=== PATIENT | male | born 1975 | race Caucasian/White ===

== ENCOUNTER → 2016-06-02 | Outpatient (CLI) | payer BC ==
[~2016-06-02] MED LIST: AGM875 PO; BUDESUS NAE; GUAI100L2 PO; IBUP-1450 PO
--- NOTE | 2016-06-02 15:53 | DIAGNOSTIC IMAGING REPORT ---
RIGHT UPPER EXTREMITY VENOUS DOPPLER CLINICAL HISTORY: Right arm swelling. COMPARISON STUDY: Right upper extremity venous Doppler January 04, 2008. TECHNIQUE: Sonography of the venous system the right upper kidney was performed. FINDINGS: The right internal jugular, subclavian, axillary, brachial, basilic, radial and ulnar veins are patent. IMPRESSION: No deep venous thrombus identified within the right upper extremity. Electronically signed by: Redd Donis M.D. 06/02/2016 3:52 PM Dictated Date/Time: 06/02/2016 3:51 PM
== END | disposition home or self-care (01) ==
LOC: C.ULTR 15:10
PROVIDERS: ATTEND Family Medicine
DX: M25.431 Effusion, right wrist (principal)

== ENCOUNTER 2017-01-13 06:54 | Emergency (ER) | payer BC ==
[~2017-01-13] VITALS: Ht 175.3 cm; Wt 82.7 kg
[2017-01-13 06:57] VITALS: TEMP 36.6; Ht 175.3 cm; Wt 82.7 kg
[2017-01-13] MEDS ORDERED: SODIUM CHLORIDE 0.9% 1000ML 1,000 ML IV STA (07:20)
[2017-01-13] MEDS ORDERED: ONDANSETRON INJ 2 MG/ML 2 ML VIAL IV STA (07:20)
[2017-01-13 07:32] LABS: BASO % 0.2 %; BASO ABS # 0.01 K/uL (0-0.2); COMPLETE YES; EOS % 2.3 %; HEMATOCRIT 45.5 % (42-52); IG% 0.5 %; LYMPH % 36.9 %; LYMPH ABS # 2.24 K/uL (1.2-3.4); MEAN CELL VOLUME 86.5 fL (80-100); MEAN CORPUSCULAR HEMOGLOBIN 31.2 pg (25-34); MEAN PLATELET VOLUME 10.4 fL (7.4-10.4); MONO % 8.7 %; NEUT % 51.4 %; PLATELET COUNT 246 K/uL (130-400); RED BLOOD COUNT 5.26 M/uL (4.7-6.1); WHITE BLOOD COUNT 6.07 K/uL (4.8-10.8)
[2017-01-13 07:52] LABS: BUN/CREATININE RATIO 9.5 (10-20); CALCIUM 9.2 mg/dl (8.5-10.1); CREATININE 1.1 mg/dl (0.60-1.40); POTASSIUM 3.6 mmol/L (3.5-5.1)
--- NOTE | 2017-01-13 07:54 | DIAGNOSTIC IMAGING REPORT ---
CT SCAN OF THE ABDOMEN AND PELVIS WITHOUT IV CONTRAST CLINICAL HISTORY: Left lower quadrant abdominal pain. COMPARISON STUDY: Abdominal CT dated 01/09/2010. TECHNIQUE: CT scan of the abdomen and pelvis is performed from the lung bases to the proximal femora. Images are reviewed in the axial, sagittal, and coronal planes. IV contrast was not administered for this examination as per the referring clinician. Note that the examination was performed in suboptimal fashion without oral and IV contrast. A dose lowering technique was utilized adhering to the principles of ALARA. CT DOSE: 659.58 mGy.cm FINDINGS: Lung bases: The heart is enlarged and without pericardial effusion. The lung bases are clear. There is a small hiatal hernia. Liver: The unenhanced liver is mildly enlarged measuring 18.5 cm in length. The liver demonstrates diffusely diminished attenuation consistent with severe hepatic steatosis. Fatty sparing is seen adjacent to gallbladder fossa. There is no intrahepatic biliary ductal dilatation. Gallbladder: Unremarkable. Spleen: Normal in size and attenuation. Pancreas: The unenhanced pancreas is normal as visualized. Adrenal glands: Unremarkable. Kidneys: The unenhanced kidneys are normal in size and without hydronephrosis. There are no renal calculi identified. There is no evidence of contour deforming renal mass lesion. Abdominal vasculature: The abdominal aorta is normal in course and caliber. Bowel: The small bowel and colon are normal in course and caliber. The appendix is well-visualized and normal. Peritoneum: There is no intraperitoneal free air or abdominal ascites. There is a small fat-containing umbilical hernia. Lymphadenopathy: None. Pelvic viscera: The bladder, prostate, and seminal vesicles are normal as visualized. Skeletal structures: No lytic or blastic lesions are seen. IMPRESSION: 1. There are no acute infectious or inflammatory findings in the abdomen or pelvis. 2. Hepatomegaly and severe back steatosis. 3. Cardiomegaly. 4. Additional findings as above. Electronically signed by: Erik Castañeda M.D. 01/13/2017 7:53 AM Dictated Date/Time: 01/13/2017 7:46 AM
--- NOTE | 2017-01-13 07:54 | DIAGNOSTIC IMAGING REPORT ---
CHEST ONE VIEW PORTABLE HISTORY: Right-sided abdominal pain. COMPARISON: Chest 07/18/2015. FINDINGS: The lungs are clear. Cardiac silhouette is normal in size. No pleural effusions. No pneumothorax. IMPRESSION: No acute process. Electronically signed by: Patricio Parks M.D. 01/13/2017 7:53 AM Dictated Date/Time: 01/13/2017 7:51 AM
[2017-01-13] MEDS ORDERED: KETOROLAC TROMETHAMINE 30 MG/ML VIAL IV STA (08:06)
--- NOTE | 2017-01-13 08:13 | EMERGENCY ROOM VISIT NOTE ---
History Report prepared by Gómez: Stefani Barajas Under the Supervision of: Shana ValenciaO. First contact with patient: 07:04 Chief Complaint: ABDOMINAL PAIN Stated Complaint: SEVERE PAIN IN RT SIDE ABD, PAIN IN BACK, History of Present Illness The patient is a 41 year old male who presents to the Emergency Room with complaints of persistent left lower quadrant abdominal pain that began two days ago. He currently rates his discomfort as a 7/10 in severity. The patient states that when his pain began on Wednesday he had difficulty shopping with his due to his pain. He states that he has been feeling nauseous since then and states that he has attempted to follow a BRAT diet. The patient states that he notices the pain into his back. He states that his pain is worsened with eating and standing in place. The patient states that he had diarrhea on Wednesday. He states that his last normal bowel movement was on Wednesday. The patient denies any history of a cholecystectomy or appendectomy. He does report a history of IBS. The patient denies any fever or vomiting. 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 Source of History: patient Onset: two days ago Position: abdomen (LLQ) Symptom Intensity: 7/10 Timing: other (persistent) Modifying Factors (Worsening): eating, other (standing up) Associated Symptoms: + nausea, + diarrhea, No fevers, No vomiting Review of Systems See HPI for pertinent positives & negatives. A total of 10 systems reviewed and were otherwise negative. Past Medical & Surgical Medical Problems: (1) Venous malformation Family History FH: heart disease Social History Smoking Status: Never Smoker Marital Status: Occupation Status: employed Current/Historical Medications No Active Prescriptions or Reported Meds Allergies Coded Allergies: Naproxen (Verified Allergy, Mild, 01/13/17) Physical Exam Vital Signs Date Time Temp Pulse Resp B/P (MAP) Pulse Ox O2 Delivery O2 Flow Rate FiO2 01/13/17 08:35 55 16 98 01/13/17 08:30 114/74 01/13/17 08:20 53 98 01/13/17 08:05 59 18 98 01/13/17 08:00 118/79 01/13/17 07:54 57 18 99 01/13/17 07:33 114/76 01/13/17 07:24 63 12 97 Room Air 01/13/17 07:16 69 01/13/17 07:11 126/86 01/13/17 06:57 36.6 63 18 125/85 97 Room Air Physical Exam CONSTITUTIONAL/VITAL SIGNS: Reviewed / noted above. GENERAL: Non-toxic in appearance. INTEGUMENTARY: Warm, dry, and [place]. HEAD: Normocephalic. EYES: without scleral icterus or trauma. ENT/OROPHARYNX: clear and moist. LYMPHADENOPATHY/NECK: Is supple without lymphadenopathy or meningismus. RESPIRATORY: Lungs clear and equal. CARDIOVASCULAR: Regular rate and rhythm. GI/ABDOMEN: Soft and mild tenderness in the left lower quadrant. No organomegaly or pulsatile mass. No rebound or guarding. Normal bowel sounds. EXTREMITIES: Warm and well perfused. BACK: No CVA tenderness. NEUROLOGICAL: Intact without focal deficits. PSYCHIATRIC: normal affect. MUSCULOSKELETAL: Normally developed with good muscle tone. Medical Decision & Procedures ER Provider Diagnostic Interpretation: Radiology results as stated below per my review and radiologist interpretation: CHEST ONE VIEW PORTABLE HISTORY: Right-sided abdominal pain. COMPARISON: Chest 07/18/2015. FINDINGS: The lungs are clear. Cardiac silhouette is normal in size. No pleural effusions. No pneumothorax. IMPRESSION: No acute process. Electronically signed by: Patricio Parks M.D. 01/13/2017 7:53 AM Dictated Date/Time: 01/13/2017 7:[address] SCAN OF THE ABDOMEN AND PELVIS WITHOUT IV CONTRAST CLINICAL HISTORY: Left lower quadrant abdominal pain. COMPARISON STUDY: Abdominal CT dated 01/09/2010. TECHNIQUE: CT scan of the abdomen and pelvis is performed from the lung bases to the proximal femora. Images are reviewed in the axial, sagittal, and coronal planes. IV contrast was not administered for this examination as per the referring clinician. Note that the examination was performed in suboptimal fashion without oral and IV contrast. A dose lowering technique was utilized adhering to the principles of ALARA. CT DOSE: 659.58 mGy.cm FINDINGS: Lung bases: The heart is enlarged and without pericardial effusion. The lung bases are clear. There is a small hiatal hernia. Liver: The unenhanced liver is mildly enlarged measuring 18.5 cm in length. The liver demonstrates diffusely diminished attenuation consistent with severe hepatic steatosis. Fatty sparing is seen adjacent to gallbladder fossa. There is no intrahepatic biliary ductal dilatation. Gallbladder: Unremarkable. Spleen: Normal in size and attenuation. Pancreas: The unenhanced pancreas is normal as visualized. Adrenal glands: Unremarkable. Kidneys: The unenhanced kidneys are normal in size and without hydronephrosis. There are no renal calculi identified. There is no evidence of contour deforming renal mass lesion. Abdominal vasculature: The abdominal aorta is normal in course and caliber. Bowel: The small bowel and colon are normal in course and caliber. The appendix is well-visualized and normal. Peritoneum: There is no intraperitoneal free air or abdominal ascites. There is a small fat-containing umbilical hernia. Lymphadenopathy: None. Pelvic viscera: The bladder, prostate, and seminal vesicles are normal as visualized. Skeletal structures: No lytic or blastic lesions are seen. IMPRESSION: 1. There are no acute infectious or inflammatory findings in the abdomen or pelvis. 2. Hepatomegaly and severe back steatosis. 3. Cardiomegaly. 4. Additional findings as above. Electronically signed by: Erik Castañeda M.D. 01/13/2017 7:53 AM Dictated Date/Time: 01/13/2017 7:46 AM Laboratory Results 01/13/17 07:20 Red Blood Count 5.26, Mean Corpuscular Volume 86.5, Mean Corpuscular Hemoglobin 31.2, Mean Corpuscular Hemoglobin Concent 36.0, Mean Platelet Volume 10.4, Neutrophils (%) (Auto) 51.4, Lymphocytes (%) (Auto) 36.9, Monocytes (%) (Auto) 8.7, Eosinophils (%) (Auto) 2.3, Basophils (%) (Auto) 0.2, Neutrophils # (Auto) 3.12, Lymphocytes # (Auto) 2.24, Monocytes # (Auto) 0.53, Eosinophils # (Auto) 0.14, Basophils # (Auto) 0.01 01/13/17 07:20 Test 01/13/17 07:20 White Blood Count 6.07 K/uL (4.8-10.8) Red Blood Count 5.26 M/uL (4.7-6.1) Hemoglobin 16.4 g/dL (14.0-18.0) Hematocrit 45.5 % (42-52) Mean Corpuscular Volume 86.5 fL (80-100) Mean Corpuscular Hemoglobin 31.2 pg (25-34) Mean Corpuscular Hemoglobin Concent 36.0 g/dl (32-36) Platelet Count 246 K/uL (130-400) Mean Platelet Volume 10.4 fL (7.4-10.4) Neutrophils (%) (Auto) 51.4 % Lymphocytes (%) (Auto) 36.9 % Monocytes (%) (Auto) 8.7 % Eosinophils (%) (Auto) 2.3 % Basophils (%) (Auto) 0.2 % Neutrophils # (Auto) 3.12 K/uL (1.4-6.5) Lymphocytes # (Auto) 2.24 K/uL (1.2-3.4) Monocytes # (Auto) 0.53 K/uL (0.11-0.59) Eosinophils # (Auto) 0.14 K/uL (0-0.5) Basophils # (Auto) 0.01 K/uL (0-0.2) RDW Standard Deviation 40.5 fL (36.4-46.3) RDW Coefficient of Variation 12.8 % (11.5-14.5) Immature Granulocyte % (Auto) 0.5 % Immature Granulocyte # (Auto) 0.03 K/uL (0.00-0.02) Anion Gap 6.0 mmol/L (3-11) Est Creatinine Clear Calc Drug Dose 90.2 ml/min Estimated GFR () 97.5 Estimated GFR (Non- 84.1 BUN/Creatinine Ratio 9.5 (10-20) Calcium Level 9.2 mg/dl (8.5-10.1) Total Bilirubin 1.2 mg/dl (0.2-1) Direct Bilirubin 0.3 mg/dl (0-0.2) Aspartate Amino Transf (AST/SGOT) 49 U/L (15-37) Alanine Aminotransferase (ALT/SGPT) 111 U/L (12-78) Alkaline Phosphatase 68 U/L (45-117) Total Protein 7.6 gm/dl (6.4-8.2) Albumin 4.3 gm/dl (3.4-5.0) Lipase 109 U/L (73-393) Laboratory results as stated above per my review. Medications Administered Medications (Trade) Dose Ordered Sig/Angel Route Start Time Stop Time Status Last Admin Dose Admin Sodium Chloride 1,000 ml @ 999 mls/hr Q1H1M STAT IV 01/13/17 07:20 01/13/17 08:20 DC 01/13/17 07:29 999 MLS/HR Ondansetron HCl (Zofran Inj) 4 mg NOW STAT IV 01/13/17 07:20 01/13/17 07:22 DC 01/13/17 07:30 4 MG Ketorolac Tromethamine (Toradol Inj) 30 mg NOW STAT IV 01/13/17 08:06 01/13/17 08:07 DC 01/13/17 08:13 30 MG ED Course 0706: Previous medical records were reviewed. The patient was evaluated in room A10. A complete history and physical examination was performed. 07: Ordered Zofran Inj 4 mg IV, Sodium Chloride 1000 ml @ 999 mls/hr IV. 805: Ordered Toradol Inj 30 mg IV. 0815: I reevaluated the patient and he is resting comfortably. I discussed the exam findings with him and I discussed the treatment plan. He verbalized complete understanding and agreement. He is ready to go home. Medical Decision Differential considered: pancreatitis, hepatitis, or acute cholecystitis, AAA, UTI, pyelonephritis, kidney stones, appendicitis, diverticulitis, shingles, bowel obstruction mesenteric ischemia, intussusception, hernia, testicular torsion. This is a 41-year-old male who presents to the ED with a chief complaint of left lower quadrant abdominal pain. The patient states that it started about 48 hours ago. He states that he awoke with the pain. He has associated nausea. He also reports some decrease in appetite. He also reports that some of the pain radiates into the left flank. The patient denies any other significant symptoms. He did state that he had some diarrhea on Wednesday. Denies any fevers. No chest pains or shortness of breath. No back pains other than that described. The patient's physical exam reveals mild tenderness to the left lower quadrant. He does report a history of IBS. A CT scan of the abdomen and pelvis did not show acute process. Chest x-ray was negative for acute disease. CBC is normal. Chemistry panel was unremarkable. He has mild elevation of the bilirubin and transaminases. The patient has had some mild elevation of the transaminase in the past. The patient's symptoms do not appear to be related to the liver and gallbladder. The patient was told the results. He was treated with IV Toradol. He is felt to be stable for discharge and outpatient follow-up. Medication Reconcilliation Current Medication List: was personally reviewed by me Impression Primary Impression: LLQ abdominal pain Scribe Attestation The scribe's documentation has been prepared under my direction and personally reviewed by me in its entirety. I confirm that the note above accurately reflects all work, treatment, procedures, and medical decision making performed by me. Departure Information Dispostion Home / Self-Care Prescriptions No Active Prescriptions or Reported Meds Referrals No Doctor, Assigned (PCP) Forms Call Back Authorization, HOME CARE DOCUMENTATION FORM, IMPORTANT VISIT INFORMATION Patient Instructions Abdominal Pain, My [facility] Additional Instructions The CAT scan today was normal. Blood work suggests a mild elevation of your liver function tests. Recommend following up with family doctor for recheck of this. Follow-up with your doctor for further care and evaluation in 1-2 days. Return to the emergency department for worsening or new symptoms or any concerns. You have been examined and treated today on an emergency basis only. This is not a substitute for, or an effort to provide, complete comprehensive medical care. It is impossible to recognize and treat all injuries or illnesses in a single emergency department visit. It is therefore important that you follow up closely with your doctor. Call as soon as possible for an appointment.
[2017-01-13 08:30] VITALS: BP 114/74
[2017-01-13 08:35] VITALS: PULSE 55; O2SAT 98
== END 2017-01-13 08:45 | disposition home or self-care (01) ==
LOC: C.EDB 06:55 → C.EDA 08:45
DX: R10.32 Left lower quadrant pain (principal); Z82.49 Family history of ischemic heart disease and other diseases of the circulatory system

== ENCOUNTER → 2017-01-15 | Outpatient (CLI) | payer BC ==
--- NOTE | 2017-01-15 07:48 | DIAGNOSTIC IMAGING REPORT ---
BILIARY ULTRASOUND CLINICAL HISTORY: ELEVATED LFT'S COMPARISON STUDY: November 2007 FINDINGS: The pancreas appears sonographically normal. There are tiny nonmobile echogenic foci within the gallbladder, likely are presenting polyps. The largest measures 3 mm. There is no ductal dilatation. The common bile duct measures 4 mm. There is no right-sided hydronephrosis. There is increased hepatic echogenicity, a nonspecific finding most often seen in hepatic steatosis. There is a 9 mm right lobe hepatic cyst. There is a 16 mm hypoechoic focus adjacent to the gallbladder fossa. This is nonspecific but could represent focal fatty sparing. IMPRESSION: 1. Tiny gallbladder polyps. No shadowing calculi identified 2. No evidence of ductal dilatation 3. Increased hepatic echogenicity, a nonspecific finding most often seen in hepatic steatosis 4. 16 mm hypoechoic focus adjacent to the gallbladder fossa. This is nonspecific but could represent focal fatty sparing Electronically signed by: Kavin Ballesteros M.D. 01/15/2017 7:47 AM Dictated Date/Time: 01/15/2017 7:35 AM
== END | disposition home or self-care (01) ==
LOC: C.ULTR 06:59
PROVIDERS: ATTEND Family Medicine
DX: R94.5 Abnormal results of liver function studies (principal); R93.2 Abnormal findings on diagnostic imaging of liver and biliary tract

== ENCOUNTER → 2017-01-29 | Outpatient (CLI) | payer BC ==
--- NOTE | 2017-01-29 09:35 | DIAGNOSTIC IMAGING REPORT ---
ABDOMINAL ULTRASOUND COMPLETE HISTORY: Generalized ABDOMINAL PAIN, ELEVATED LFT. COMPARISON: Abdominal ultrasound 01/15/2017. Abdomen and pelvis CT 01/13/2017. FINDINGS: Pancreas: The pancreas demonstrates a normal echotexture. Liver: The liver is echogenic consistent with fatty change. Focal hypodensity adjacent to the gallbladder fossa consistent with focal fatty sparing. 1 cm cyst within the liver. Gallbladder: No gallbladder wall thickening. No gallstones. There are 2 small polyps with the largest measuring 3 mm. CBD: 4 mm. Kidneys: No hydronephrosis. Spleen: Normal in size. Aorta: Normal in caliber. IVC: Patent. IMPRESSION: 1. A few subcentimeter polyps. No gallstones. No gallbladder wall thickening. 2. Hepatic steatosis. Electronically signed by: Patricio Parks M.D. 01/29/2017 9:34 AM Dictated Date/Time: 01/29/2017 9:29 AM
== END | disposition home or self-care (01) ==
LOC: C.ULTRBC 08:14
PROVIDERS: ATTEND Family Medicine
DX: R79.89 Other specified abnormal findings of blood chemistry (principal); R10.9 Unspecified abdominal pain; K82.4 Cholesterolosis of gallbladder; K76.0 Fatty (change of) liver, not elsewhere classified